=== PATIENT | male | born 1965 | race Caucasian/White ===

== ENCOUNTER 2017-04-13 01:29 | Day surgery (SDC) | payer OTHER ==
[~2017-04-13] VITALS: Ht 177.8 cm; Wt 74.4 kg
[~2017-04-13 01:29] MED LIST: NO CURRENT MEDS; OMEP-137 PO
[2017-04-13 08:07] VITALS: BP 113/84
--- NOTE | 2017-04-13 08:07 | Post Operative Progress Note ---
Post Operative Progress Note Date: Apr 13, 2017 Time: 09:28 Surgeon: andriy Anesthesia: dr roa Pre-Op Diagnosis: family history of colon cancer Post-Op Diagnosis: sigmoid diverticulosis Procedure(s): colonoscopy YUNIEL RENDON MD Apr 13, 2017 08:07
--- NOTE | 2017-04-13 08:08 | Short(Outpt) Discharge Summary ---
Discharge Summary Reason for Hosp/Final Diag: (1) Family history of colon cancer requiring screening colonoscopy Hospital Course & Plan: sigmoid diverticulosis Departure Discharge to: Home Discharge Instructions Home Meds Reported Medications Omeprazole (OMEPRAZOLE) 20 Mg Tablet., 20 MG PO QDAY, TAB 04/11/17 Diet: High Fiber Activity: As Tolerated YUNIEL RENDON MD Apr 13, 2017 08:08
[2017-04-13] MEDS ORDERED: NORMOSOL R SOLN(*) 1000 ML BAG 1,000 ML IV PRN (08:30)
[2017-04-13] MEDS ORDERED: MIDAZOLAM 2 MG/2 ML VIAL IVP PRN (08:30)
[2017-04-13] MEDS ORDERED: LIDOCAINE/SOD BICARB 8.4% SYR ID ONE (08:30)
[2017-04-13] MEDS ORDERED: LIDOCAINE MPF 1% 5 ML VIAL ONE (08:45)
[2017-04-13] MEDS ORDERED: PROPOFOL EMUL(*) 10MG/ML 20 ML 40 ML ONE (08:45)
[2017-04-13 09:27] VITALS: BP 99/73
[2017-04-13 09:43] VITALS: BP 106/69
[2017-04-13 09:53] VITALS: BP 96/77
[2017-04-13 10:20] VITALS: BP 111/91
[2017-04-13 10:22] VITALS: BP 106/76
--- NOTE | 2017-04-13 15:58 | OPERATIVE REPORT 1 ---
EVENT DATE: April 13, 2017 SURGEON: Monroe Vazquez MD ANESTHESIOLOGIST: Jignesh Howell MD ANESTHESIA: Sedation. PREOPERATIVE DIAGNOSIS Family history of colon cancer. POSTOPERATIVE DIAGNOSIS Sigmoid diverticula. PROCEDURE PERFORMED Colonoscopy. DESCRIPTION OF PROCEDURE The patient was placed in the left lateral decubitus position and given intravenous sedation. The rectal exam was unremarkable. A flexible colonoscope was inserted and advanced to the cecum. He had an excellent bowel prep. Ileocecal valve and base of the cecum were identified. The scope was slowly withdrawn. Care was taken to look behind the haustral folds. No abnormalities were noted in the cecum, right colon, transverse, or descending colon. He had a few diverticula in the sigmoid colon. No evidence of diverticulitis. Rectum was normal. The scope was retroflexed, and that appeared to be normal. He will need a repeat colonoscopy in five years because of the family history of colon cancer. [place]
== END 2017-04-13 10:40 ==
LOC: OR 01:29
PROVIDERS: ATTEND Surgery
DX: Z12.11 Encounter for screening for malignant neoplasm of colon (principal); K57.30 Diverticulosis of large intestine without perforation or abscess without bleeding; Z80.0 Family history of malignant neoplasm of digestive organs
CPT/HCPCS: 00812; 45378; J2001; J2704

== ENCOUNTER → 2018-03-02 | Outpatient (CLI) | payer OTHER ==
--- NOTE | 2018-03-02 09:05 | RADIOLOGY IMAGING REPORT ---
FACILITY: [facility] - [place] PATIENT NAME: Ash Tucker : 1965 MR: [id number] V: [id number] EXAM DATE: ORDERING PHYSICIAN: URSULA ANDERS TECHNOLOGIST: Location: [facility] [place] Patient: Ash Tucker : 1965 Visit/Account:[id number] Date of Sevice: 03/02/2018 3 Views left first finger INDICATION: Cellulitis and possible foreign body COMPARISON: None Available FINDINGS: No acute osseous abnormality identified. No evidence of radiopaque foreign body. The joint spaces are well-maintained. IMPRESSION: No acute osseous abnormality of the left thumb. No visualized foreign body. Report Dictated By: Prosper Ceron MD at 03/02/2018 9:00 AM Report E-Signed By: Prosper Ceron MD at 03/02/2018 9:01 AM WSN:[id number]
== END ==
LOC: RAD 08:30
PROVIDERS: ATTEND Nurse Practitioner Family
DX: L03.112 Cellulitis of left axilla (principal)